=== PATIENT | female | born 1960 | race Caucasian/White ===

== ENCOUNTER 2017-10-22 10:38 | Inpatient (IN) | payer BC ==
[~2017-10-22] VITALS: Ht 165.1 cm; Wt 95.5 kg
[2017-10-22 11:24] LABS: BASOPHILS 0.2 % (0-2); EOSINOPHILS 3.4 % (0-7); HEMATOCRIT 41.6 % (36.0-48.0); HEMOGLOBIN 13.4 g/dL (12-16); IMMATURE GRANULOCYTES 0.3 % (0-5); LYMPHOCYTES 22.8 % (15-50); MCH 28.6 pg (26.0-34.0); MCHC 32.2 g/dL (31.0-37.0); MCV 88.7 fL (80.0-100.0); MEAN PLATELET VOLUME 10.1 fL (7.4-10.4); MONOCYTES 4.2 % (2-11); NEUTROPHILS 69.1 % (40-80); PLATELET COUNT 232 10x3/uL (130-400); RBC 4.69 10x6/uL (4.00-5.40); RDW 14.3 % (11.5-14.5); WBC 6.2 10x3/uL (4.8-10.8)
[2017-10-22 11:43] LABS: APPEARANCE CLEAR (CLEAR); BILIRUBIN 1+ (NEGATIVE); COLOR DK YELLOW (YELLOW); GLUCOSE NEGATIVE (NEGATIVE); KETONE NEGATIVE (NEGATIVE); NITRITE NEGATIVE (NEGATIVE); PROTEIN NEGATIVE (NEGATIVE)
[2017-10-22 11:48] LABS: ALBUMIN 3.7 g/dL (3.4-5.0); ALKALINE PHOSPHATASE 204 U/L (46-116); ALT (SGPT) 395 U/L (10-68); AMYLASE - SERUM 42 U/L (25-115); BILIRUBIN - TOTAL 3.84 mg/dL (0.2-1.3); CALC OSMOLALITY 276 mosm/kg (275-300); CALCIUM 8.3 mg/dL (8.5-10.1); CARBON DIOXIDE 24.4 mmol/L (21.0-32.0); CHLORIDE - SERUM 104 mmol/L (98-107); CREATININE - SERUM 0.6 mg/dL (0.6-1.3); GLUCOSE 108 mg/dL (74-106); LIPASE 255 U/L (73-393); POTASSIUM - SERUM 3.5 mmol/L (3.5-5.1); PROTEIN - SERUM 6.7 g/dL (6.4-8.2); SODIUM 140 mmol/L (136-145); UREA NITROGEN 5 mg/dL (7-18); eGFR NON AFRICAN AMERICAN > 90 mL/min (90-120)
[2017-10-22 11:51] LABS: BACTERIA MODERATE /hpf (NONE SEEN); EPITHELIAL CELLS OCC /hpf (0-5); MUCUS <1+ /lpf (NONE SEEN); WHITE CELLS - URINE RARE /hpf (0-5)
--- NOTE | 2017-10-22 14:35 | NUR ---
RECIEVED TO ROOM 2223 FROM ER VIA . SL TO L HAND. DENIES ANY COMPLAINT OF PAIN AT THIS TIME.
[2017-10-22 14:49] VITALS: BP 150/75; Ht 165.1 cm; Wt 95.5 kg
--- NOTE | 2017-10-22 18:00 | NUR ---
NO CHANGES NOTED.
[2017-10-22 19:30] VITALS: BP 135/76
--- NOTE | 2017-10-22 20:35 | NUR ---
NOTIFIED BY SONAM NAZARIO THAT THE PATIENT WAS IN PAIN. ADMINISTERED MORPHINE PER ORDERS. PATIENT DENIES OTHER NEEDS AT THIS TIME. AT BEDSIDE. BED IN LOWEST POSITION AND CALL LIGHT WITHIN REACH. ENCOURAGED THE PATIENT TO CALL IF SHE HAS NEEDS.
[2017-10-22 23:30] VITALS: BP 114/56
--- NOTE | 2017-10-22 23:45 | NUR ---
NOTIFIED BY PATIENT THAT HER IV IN HER LEFT HAND WAS STINGING AND THERE IS A SMALL AMOUNT OF REDNESS NOTED AT THE IV SITE. RESITED THE PATIENT'S IV IN HER RIGHT FA WITH A 20G ON THE FIRST ATTEMPT.
[2017-10-23 04:59] VITALS: BP 82/29
[2017-10-23 06:18] LABS: BASOPHILS 0.4 % (0-2); EOSINOPHILS 5.1 % (0-7); HEMATOCRIT 38.8 % (36.0-48.0); HEMOGLOBIN 12.4 g/dL (12-16); IMMATURE GRANULOCYTES 0.2 % (0-5); LYMPHOCYTES 40.2 % (15-50); MCH 28.2 pg (26.0-34.0); MCV 88.4 fL (80.0-100.0); MEAN PLATELET VOLUME 10.2 fL (7.4-10.4); MONOCYTES 5.5 % (2-11); NEUTROPHILS 48.6 % (40-80); PLATELET COUNT 209 10x3/uL (130-400); RBC 4.39 10x6/uL (4.00-5.40); RDW 14.3 % (11.5-14.5); WBC 5.1 10x3/uL (4.8-10.8)
[2017-10-23 06:32] LABS: INR 1.08 (0.85-1.17); PROTIME 13.9 SECONDS (11.6-15.0)
[2017-10-23 07:04] LABS: ALBUMIN 3.1 g/dL (3.4-5.0); ALKALINE PHOSPHATASE 182 U/L (46-116); AMYLASE - SERUM 35 U/L (25-115); BILIRUBIN - TOTAL 2.48 mg/dL (0.2-1.3); C-REACTIVE PROTEIN 0.6 mg/dL (0.0-0.9); CALC OSMOLALITY 276 mosm/kg (275-300); CALCIUM 7.8 mg/dL (8.5-10.1); CARBON DIOXIDE 25.6 mmol/L (21.0-32.0); CHLORIDE - SERUM 105 mmol/L (98-107); CREATININE - SERUM 0.6 mg/dL (0.6-1.3); GAMMA GT 464 U/L (5-85); GLUCOSE 110 mg/dL (74-106); LIPASE 194 U/L (73-393); POTASSIUM - SERUM 3.4 mmol/L (3.5-5.1); PROTEIN - SERUM 5.8 g/dL (6.4-8.2); SODIUM 140 mmol/L (136-145); UREA NITROGEN 5 mg/dL (7-18); eGFR NON AFRICAN AMERICAN > 90 mL/min (90-120)
[2017-10-23 07:06] LABS: ALT (SGPT) 294 U/L (10-68)
[2017-10-23 08:44] VITALS: BP 121/63
--- NOTE | 2017-10-23 11:18 | NUR ---
Patient Name: NEELIMA HERNANDEZ Admission Status: ER Accout number: [id number] Admission Date: 10-22-2017 : 1960 Admission Diagnosis: Attending: ANCELMO, Current LOS: 1 Anticipated DC Date: 10-26-2017 Planned Disposition: Home Primary Insurance: [employer] O Discharge Planning Comments: CM MET WITH PATIENT REGARDING D/C NEEDS AND PLANS. PATIENT STATED SHE LIVES WITH HER SPOUSE (RICHARD) AND HE WILL DRIVE HER HOME AT DISCHARGE. PATIENT STATED THERE ARE 4 STEPS W/RAILS TO ENTER HOME AND NO STAIRS INSIDE. PATIENT IS INDEPENDENT WITH HER CARE AND HAS A WALKER, WHEELCHAIR, SHOWER CHAIR, AND CANE AT HOME. PATIENTS PCP IS DR. JAFFE IN [place] AND USES [facility] FOR HER PHARMACY. PATIENT DOES NOT WANT AT THIS TIME. CM WILL CONTINUE TO FOLLOW PATIENT WITH D/C NEEDS AND PLANS. PCP DR. ERAZO IN [place] PHARM[facility]Y [facility] AT [phone] RICHARD (SPOUSE) [phone] [employer]der: Gaviota Raymundo Is the patient Alert and Oriented? Yes 0 * How many steps to enter\exit or inside your home? 4 W/RAILS 0 * PCP DR. ERAZO IN [place] 0 * Pharmacy [facility] 0 * Preadmission Environment Home with Family 0 * ADLs Independent 0 * Equipment Cane Shower Chair Walker Wheelchair 0 * List name and contact numbers for known caregivers / representatives who currently or will assist patient after discharge: RICHARD (SPOUSE) [phone] 0 * Community resources currently utilized None 0 * Additional services required to return to the preadmission environment? Yes 0 * Can the patient safely return to the preadmission environment? Yes 0 * Has this patient been hospitalized within the prior 30 days at any hospital? No 0 Grand Total: 0
[2017-10-23 12:09] VITALS: BP 121/61
[2017-10-23 16:16] VITALS: BP 135/72
--- NOTE | 2017-10-23 19:11 | NUR ---
25 MLS CONTRAST AND 1 MINUTE XRAY TIME.
--- NOTE | 2017-10-23 20:14 | NUR ---
PATIENT BACK FROM GI LAB. SHE VERBALIZED NAUSEA. VOMITED 50ML OF [id number] EMESIS. SOME EMESIS GOT ON BOTTOM SHEET ON BED. CHANGED PATIENT'S LINENS AND GOWN. FAMILY STEPPED OUT OF ROOM WHILE CHANGING PATIENT'S LINENS. NOW BACK IN ROOM. BED IN LOWEST POSITION, CALL LIGHT IN REACH. BED RAILS UP X'S 3. HOB 40 DEGREES.
[2017-10-23 20:15] VITALS: BP 128/65
--- NOTE | 2017-10-23 20:40 | NUR ---
NOTIFIED THAT PATIENT IS UNABLE TO TOLERATE THE MAG CITRATE DUE TO NAUSEA. NO NEW ORDERS.
[2017-10-24 04:00] VITALS: BP 112/59
[2017-10-24 05:49] LABS: BASOPHILS 0.1 % (0-2); HEMATOCRIT 40.7 % (36.0-48.0); HEMOGLOBIN 12.9 g/dL (12-16); IMMATURE GRANULOCYTES 0.4 % (0-5); LYMPHOCYTES 24.2 % (15-50); MCH 28.3 pg (26.0-34.0); MCHC 31.7 g/dL (31.0-37.0); MCV 89.3 fL (80.0-100.0); MEAN PLATELET VOLUME 10.8 fL (7.4-10.4); MONOCYTES 4.8 % (2-11); NEUTROPHILS 69.5 % (40-80); RBC 4.56 10x6/uL (4.00-5.40); RDW 14.1 % (11.5-14.5)
[2017-10-24 06:04] LABS: PLATELET COUNT 255 10x3/uL (130-400); WBC 7.7 10x3/uL (4.8-10.8)
[2017-10-24 06:10] LABS: ALBUMIN 3.2 g/dL (3.4-5.0); ALKALINE PHOSPHATASE 177 U/L (46-116); ALT (SGPT) 246 U/L (10-68); BILIRUBIN - TOTAL 1.24 mg/dL (0.2-1.3); CALCIUM 8.2 mg/dL (8.5-10.1); CARBON DIOXIDE 23.4 mmol/L (21.0-32.0); CHLORIDE - SERUM 105 mmol/L (98-107); CREATININE - SERUM 0.6 mg/dL (0.6-1.3); GLUCOSE 86 mg/dL (74-106); POTASSIUM - SERUM 3.7 mmol/L (3.5-5.1); PROTEIN - SERUM 6.5 g/dL (6.4-8.2); SODIUM 139 mmol/L (136-145); eGFR NON AFRICAN AMERICAN > 90 mL/min (90-120)
[2017-10-24 06:16] LABS: CALC OSMOLALITY 274 mosm/kg (275-300); UREA NITROGEN 8 mg/dL (7-18)
--- NOTE | 2017-10-24 08:00 | NUR ---
PT AOX4 RESP EVEN AND NONLABORED PT DENIES NEEDS AT THIS TIME SRX2 BED AT LOWEST SETTING CALL LIGHT WITHIN REACH WILL CONTINUE TO MONITOR
[2017-10-24 08:37] VITALS: BP 121/64
--- NOTE | 2017-10-24 08:52 | NUR ---
PT AOX4 RESP EVEN AND NONLABORED PT DENIES NEEDS AT THIS TIME IV TO RIGHT FOREARM PATENT AND INTACT AT THIS TIME SRX2 BED AT LOWEST SETTING CALL LIGHT WITHIN REACH WILL CONTINUE TO MONITOR
[2017-10-24 12:18] VITALS: BP 147/79
[2017-10-24] MEDS ORDERED: HYDROCODON-ACE1 EAC7 PO (17:03)
--- NOTE | 2017-10-24 19:30 | NUR ---
PATIENT AMBULATING IN THE RUSSO WITH . GAIT STRONG AND STEADY. NO SIGNS OF DISTRESS NOTED.
[2017-10-24 20:50] VITALS: BP 100/53
[2017-10-25] VITALS: BP 103/56
--- NOTE | 2017-10-25 00:57 | NUR ---
PATIENT REQUESTED A PAIN PILL, SHE STATED SHE DOES NOT WANT TO TAKE PAIN MEDICATION, BUT SHE IS EXPERIENCING SHOOTING PAINS IN HER ABDOMEN, RATING A 9/10. ADMINISTERED NOCRO-5 PER PRN ORDER. PATIENT DENIES ANY OTHER NEEDS AT THIS TIME. BED IN LOWEST POSITION, CALL LIGHT IN REACH. BED RAILS UP X'S 2. HOB 30 DEGREES. ASLEEP IN RECLINER.
[2017-10-25 05:37] LABS: BASOPHILS 0.2 % (0-2); EOSINOPHILS 0.4 % (0-7); HEMATOCRIT 37.8 % (36.0-48.0); HEMOGLOBIN 11.9 g/dL (12-16); IMMATURE GRANULOCYTES 0.3 % (0-5); LYMPHOCYTES 18.6 % (15-50); MCH 28.1 pg (26.0-34.0); MCHC 31.5 g/dL (31.0-37.0); MCV 89.2 fL (80.0-100.0); MEAN PLATELET VOLUME 10.4 fL (7.4-10.4); NEUTROPHILS 74.8 % (40-80); PLATELET COUNT 235 10x3/uL (130-400); RBC 4.24 10x6/uL (4.00-5.40); RDW 14.5 % (11.5-14.5); WBC 10.5 10x3/uL (4.8-10.8)
[2017-10-25 05:42] VITALS: BP 102/49
[2017-10-25 05:54] LABS: ALBUMIN 2.9 g/dL (3.4-5.0); ALKALINE PHOSPHATASE 139 U/L (46-116); ALT (SGPT) 185 U/L (10-68); BILIRUBIN - TOTAL 0.79 mg/dL (0.2-1.3); CALC OSMOLALITY 275 mosm/kg (275-300); CALCIUM 7.9 mg/dL (8.5-10.1); CARBON DIOXIDE 25.4 mmol/L (21.0-32.0); CHLORIDE - SERUM 105 mmol/L (98-107); CREATININE - SERUM 0.6 mg/dL (0.6-1.3); GLUCOSE 104 mg/dL (74-106); POTASSIUM - SERUM 3.5 mmol/L (3.5-5.1); PROTEIN - SERUM 5.9 g/dL (6.4-8.2); SODIUM 139 mmol/L (136-145); UREA NITROGEN 8 mg/dL (7-18); eGFR NON AFRICAN AMERICAN > 90 mL/min (90-120)
[2017-10-25 09:06] VITALS: BP 107/68
--- NOTE | 2017-10-25 09:07 | NUR ---
CM REASSESSMENT NOTE: PATIENT IS DISCHARGING HOME TODAY/DENIES HOME HEALTH/SPOUSE DRIVING PATIENT HOME. PATIENT HAD NO OTHER NEEDS FOR D/C.
--- NOTE | 2017-10-25 09:43 | NUR ---
ASSESSMENT PER FLOW SHEET.PT WITHOUT DISTRESS. LAP SITES X3 CDI. IV DCD WITH CATH TIP INTACT.DISCHARGE INSTRUCTIONS,STATES UNDERSTANDING. HELPING PT WITH DRESSING.
--- NOTE | 2017-10-25 09:47 | NUR ---
LEFT UNIT VIA WHEELCHAIR FOR TRANSPORT HOME
--- NOTE | 2017-11-21 13:26 | CN ---
PATIENT NAME:NEELIMA HERNANDEZ MEDICAL RECORD: [id number] : [birth year] LOCATION:[facility] ADMIT DATE: 10/22/17 ACCOUNT: [id number] CONSULTING PHYSICIAN: VANE VASQUEZ MD REFERRING PHYSICIAN: EDDIE AG MD DATE OF CONSULTATION: 10/22/2017 CHIEF COMPLAINT: Gallstones. HISTORY OF PRESENT ILLNESS: The patient has what appears to be common bile duct stones on imaging. I have personally reviewed the x-ray images. I personally reviewed the x-ray report. Her symptoms are mild in severity. Palpation aggravates. Nothing alleviates. We are going to wait for the stones to be cleared from the common bile duct before proceeding with laparoscopic cholecystectomy. The risks, possible complications, and alternatives to procedure were explained to the patient. She elects to proceed. This is a consultation note addendum. For the typed portion of the consult note, please see the chart. This would include the past medical and surgical history, current medications, allergies, social history as well as family history. REVIEW OF SYSTEMS: No fever, no chills, no headache, no shortness of breath, no chest pain. The review of systems is negative other than as is described above. PHYSICAL EXAMINATION: GENERAL: The patient does not appear acutely ill. She does not appear chronically ill. The entire physical examination was performed in the presence of a female nurse. VITAL SIGNS: Reviewed. EARS: External ears appear normal. EYES: Extraocular movements are intact. NECK: Trachea is midline. CHEST: No intercostal retractions. PULMONARY: Nonlabored, no stridor. ABDOMEN: Right upper quadrant tenderness without a Rollins sign. No peritonitis with percussion. EXTREMITIES: No peripheral cyanosis. INTEGUMENT: No rash, no ulcerations. PSYCHIATRIC: Normal affect. NEUROLOGIC: Nonfocal, no lethargy. The patient answers questions appropriately, moves all extremities well. BACK: No thoracic kyphosis. LYMPHATICS: No lymphangitic streaking of the exposed extremities. IMPRESSION: 1. Symptomatic gallstones. 2. Choledocholithiasis. PLAN: ERCP and then laparoscopic cholecystectomy, intraoperative cholangiography, and possible liver biopsy the following day. TRANSINT:[id number] Voice Confirmation ID: [id number] DOCUMENT ID: [id number] CONSULT REPORT [id number] NEELIMA HERNANDEZ ROBERT MD at 1326 CC: JOSÉ MIGUELALINASABINA Varma DO [id number] DICTATION DATE: 10/23/17 183 BIOLOGY INTERN: 10/23/17 190 DIS IN 10/25/17 [id number] [place] [address]
--- NOTE | 2017-11-21 13:26 | OP ---
PATIENT NAME: NEELIMA HERNANDEZ MEDICAL RECORD: [id number] :[birth year] LOCATION:D[facility] ADMISSION DATE:10/22/17 SURGEON: BRENDON VASQUEZ MD DATE OF OPERATION: 10/24/2017 PREOPERATIVE DIAGNOSIS: Symptomatic gallstones. POSTOPERATIVE DIAGNOSES: Symptomatic gallstones with hepatomegaly. PROCEDURES: 1. Laparoscopic cholecystectomy. 2. Intraoperative cholangiography without immediate surgeon interpretation. 3. An 18-gauge core needle liver biopsy. SURGEON: Brendon Vasquez MD FOOD CASHIER: None. BLOOD LOSS: Minimal. ANESTHESIA: General. COMPLICATIONS: None. The risks, possible complications and alternatives to the procedure were explained to the patient. She elects to proceed. OPERATIVE COURSE: The patient was conveyed to the operating room electively on 10/24/2017. General anesthesia was induced by the anesthesia staff. The patient's abdomen was sterilely prepped and draped. A small skin arnaldo was accomplished in the left upper quadrant. A Veress needle was inserted through the skin arnaldo into the peritoneal cavity. CO2 insufflation was begun. Once a sufficient pneumoperitoneum had been achieved, a 5-mm trocar was inserted through an incision in the right upper quadrant. Under direct internal vision utilizing a television camera, a 12-mm trocar was inserted through an incision at the umbilicus. Another 5-mm trocar was inserted through an incision in the epigastrium. Another 5-mm trocar was inserted through an incision far laterally in the right upper quadrant. During insertion of the Veress needle and all trocars, there appeared to have been no injury to the bowels, any intraperitoneal or retroperitoneal structures. The indication for liver biopsy was hepatomegaly. Under laparoscopic guidance, I percutaneously accessed the right upper quadrant utilizing an 18-gauge core needle liver biopsy device. Cores were obtained over the convexity of the liver. The biopsy site was made hemostatic with the electrocautery. I then advanced a cholangiogram trocar. I punctured the fundus of the gallbladder. I aspirated bile. I then injected dye. Under real time fluoroscopy, static fluoroscopic images were obtained. These were cholangiographic images which are sent to the radiologist for interpretation. I then withdrew the cholangiogram trocar. The gallbladder was grasped and retracted cephalad. The infundibulum was grasped and retracted laterally. Blunt dissection was begun on the triangle of Calot. One cystic artery and one cystic duct were identified. These were OPERATIVE REPORT [id number] NEELIMA HERNANDEZ clipped multiply and divided between clips. The gallbladder was then excised from its bed and the liver. It was placed within an Endobag retrieval device and was withdrawn through the umbilical fascia defect. The 12-mm trocar was replaced and the abdomen reinsufflated. I irrigated and aspirated the right upper quadrant. There was no bleeding even at low pressure of 8. The fascia at the umbilicus was closed with a horizontal mattress 0 Vicryl suture. The skin at the umbilicus was closed with interrupted 4-0 Vicryl Rapide sutures. The other skin incisions were closed with interrupted 4-0 Vicryls. Benzoin and Steri-Strips were applied. The patient was then extubated and conveyed to the post-anesthesia care unit where she was in stable condition. TRANSINT:[id number] Voice Confirmation ID: [id number] DOCUMENT ID: [id number] BRENDON VASQUEZ MD at 1326 CC: [id number] DICTATION DATE: 10/24/17 1140 RAILROAD COMMISSIONER: 10/24/17 1312 DIS IN 10/25/17 [facility] [address] [place] [address]
== END 2017-10-25 10:11 | disposition home or self-care (01) | DRG 419 ==
LOC: D.ER 10:38 → D.MS 13:56
PROVIDERS: Emergency Medicine; Internal Medicine Gastroenterology; ADMIT Family Medicine
PROC: BF101ZZ Fluoroscopy of Bile Ducts using Low Osmolar Contrast (ICD-10-PCS; 2017-10-23)
PROC: 0FC98ZZ Extirpation of Matter from Common Bile Duct, Via Natural or Artificial Opening Endoscopic (ICD-10-PCS; principal; 2017-10-23 16:00)
PROC: 0FT44ZZ Resection of Gallbladder, Percutaneous Endoscopic Approach (ICD-10-PCS; 2017-10-24)
PROC: BF121ZZ Fluoroscopy of Gallbladder using Low Osmolar Contrast (ICD-10-PCS; 2017-10-24)
PROC: 0FB03ZX Excision of Liver, Percutaneous Approach, Diagnostic (ICD-10-PCS; 2017-10-24)
DX: K80.70 Calculus of gallbladder and bile duct without cholecystitis without obstruction (principal); Z87.891 Personal history of nicotine dependence; R16.0 Hepatomegaly, not elsewhere classified

== ENCOUNTER 2021-02-16 18:14 | Outpatient (CLI) | payer BC ==
[2017-10-22 14:49] VITALS: BMI 35.0
[~2021-02-16 18:14] MED LIST: HYDROCODON-ACE1 EAC7 PO
== END 2021-02-16 23:59 | disposition home or self-care (01) ==
LOC: D.MAMMO 18:14
PROVIDERS: ATTEND Family Medicine
DX: Z12.31 Encounter for screening mammogram for malignant neoplasm of breast (principal)